=== PATIENT | female | born 1960 | race African-American/Black ===

== ENCOUNTER 2017-06-04 13:49 | Emergency (ER) | payer OTHER ==
[~2017-06-04] VITALS: Ht 157.5 cm; Wt 75.0 kg
[~2017-06-04 13:49] MED LIST: ASPI81TA42 PO; CLOP75 PO; GABA-531 PO; IBUP-1547 PO; LISI-622 PO; METF500T4 PO; METH5TAB7 PO; METO-323 PO; RANI150C PO; SIMV20TA6 PO
[2017-06-04 14:02] VITALS: BP 105/74
[2017-06-04] MEDS ORDERED: HYDR25TA PO (14:02)
[2017-06-04 14:06] LABS: GLUCOSE,POINT OF CARE 157 MG/DL (70-110)
[2017-06-04] MEDS ORDERED: EMPA25TA PO (14:07)
[2017-06-04] MEDS ORDERED: GLIP5TAB11 PO (14:07)
[2017-06-04] MEDS ORDERED: EXEN10PE3 SQ (14:07)
[2017-06-04] MEDS ORDERED: PANT40TA25 PO (14:07)
== END 2017-06-04 16:26 | disposition home or self-care (01) ==
LOC: EMS 13:50
DX: N39.0 Urinary tract infection, site not specified (principal); R81 Glycosuria; I25.10 Atherosclerotic heart disease of native coronary artery without angina pectoris; E11.9 Type 2 diabetes mellitus without complications; K21.9 Gastro-esophageal reflux disease without esophagitis; I10 Essential (primary) hypertension
CPT/HCPCS: 82962; 99283

== ENCOUNTER 2017-11-26 11:40 | Emergency (ER) | payer OTHER ==
[~2017-11-26] VITALS: Ht 157.5 cm; Wt 72.5 kg
[~2017-11-26 11:40] MED LIST changes: +EMPA25TA PO; +EXEN10PE3 SQ; +GLIP5TAB11 PO; +HYDR25TA PO; -IBUP-1547 PO; +IBUP-2077 PO; -LISI-622 PO; -METH5TAB7 PO; -METO-323 PO; +METO-408 PO; +PANT40TA25 PO
[2017-11-26 11:53] LABS: GLUCOSE,POINT OF CARE 151 MG/DL (70-110)
[2017-11-26 12:05] VITALS: BP 101/65
== END 2017-11-26 13:05 | disposition home or self-care (01) ==
LOC: EMS 11:40
DX: Z76.0 Encounter for issue of repeat prescription (principal); E11.9 Type 2 diabetes mellitus without complications; I10 Essential (primary) hypertension; I25.10 Atherosclerotic heart disease of native coronary artery without angina pectoris; K21.9 Gastro-esophageal reflux disease without esophagitis
CPT/HCPCS: 82962; 99282

== ENCOUNTER 2018-06-29 10:50 | Emergency (ER) | payer OTHER ==
[~2018-06-29] VITALS: Ht 154.9 cm; Wt 71.8 kg
[~2018-06-29 10:50] MED LIST changes: +METF-444 PO; -METF500T4 PO
[2018-06-29 11:09] LABS: GLUCOSE,POINT OF CARE 439 MG/DL (70-110)
[2018-06-29] MEDS ORDERED: INSULIN REGULAR, HUMAN 100 UNITS/ML SQ ONE (11:45)
[2018-06-29 11:47] LABS: APPEARANCE,URINE CLEAR (CLEAR); BILIRUBIN,URINE NEGATIVE (NEGATIVE); GLUCOSE, URINE (UA) >=1000 mg/dL (NEGATIVE); KETONES,URINE NEGATIVE (NEGATIVE); LEUKOCYTE ESTERASE ,URINE NEGATIVE (NEGATIVE); NITRATE,URINE NEGATIVE (NEGATIVE); OCCULT BLOOD,URINE NEGATIVE (NEGATIVE); PROTEIN,URINE NEGATIVE (NEGATIVE); UROBILINOGEN,URINE 0.2 mg/dL (<=1.0)
[2018-06-29 12:02] LABS: BACTERIA,URINE None Seen /HPF (None Seen); RBC,URINE 0-2 /HPF (0-2); SQUAMOUS EPITHELIAL CELL,UR Few /LPF (None Seen); WBC,URINE 0-2 /HPF (0-5)
[2018-06-29 12:24] LABS: GLUCOSE,POINT OF CARE 374 MG/DL (70-110)
[2018-06-29 12:28] VITALS: BP 110/77
== END 2018-06-29 12:35 | disposition home or self-care (01) ==
LOC: EMS 10:51
DX: R30.0 Dysuria (principal); E74.8 Other specified disorders of carbohydrate metabolism; I10 Essential (primary) hypertension; I25.10 Atherosclerotic heart disease of native coronary artery without angina pectoris; K21.9 Gastro-esophageal reflux disease without esophagitis; Z79.82 Long term (current) use of aspirin; Z79.84 Long term (current) use of oral hypoglycemic drugs
CPT/HCPCS: 81001; 82962; 96372; 99283; J1815

== ENCOUNTER 2019-02-24 10:43 | Emergency (ER) | payer OTHER ==
[~2019-02-24] VITALS: Ht 157.5 cm; Wt 73.6 kg
[~2019-02-24 10:43] MED LIST changes: +ASPI81TA40 PO; -ASPI81TA42 PO; -CLOP75 PO; +CLOP75TA3 PO; -EXEN10PE3 SQ; -GLIP5TAB11 PO; -HYDR25TA PO; -PANT40TA25 PO
[2019-02-24 10:54] LABS: GLUCOSE,POINT OF CARE 151 MG/DL (70-110)
[2019-02-24] MEDS ORDERED: DEXAMETHASONE SOD PHOS 4 MG/ML 5 ML VIAL IM ONE (11:45)
[2019-02-24] MEDS ORDERED: KETOROLAC TROMETHAMINE 30 MG/ML VIAL IM ONE (11:45)
[2019-02-24 12:03] LABS: BASOPHILS % (AUTO) 0.9 % (0.0-2.0); EOSINOPHILS % (AUTO) 2.1 % (1.0-6.0); HEMATOCRIT 37.8 % (36-46); HEMOGLOBIN 11.8 g/dL (12.0-16.0); LYMPHOCYTES # (AUTO) 2.4 K/uL (1.0-4.8); LYMPHOCYTES % (AUTO) 38.9 % (22.0-44.0); MEAN CORPUSCULAR HEMOGLOBIN 22.9 pg (26.0-34.0); MEAN CORPUSCULAR HGB CONC 31.2 G/dL (31.0-37.0); MEAN CORPUSCULAR VOLUME 73 fL (80-100); MONOCYTES # (AUTO) 0.5 K/uL (0.1-1.0); MONOCYTES % (AUTO) 7.8 % (2.0-9.0); NEUTROPHILS # (AUTO) 3.2 K/uL (1.8-7.7); NEUTROPHILS % (AUTO) 50.3 % (40.0-70.0); PLATELET COUNT (AUTO) 239 K/uL (150-450); RED BLOOD CELL COUNT(AUTO) 5.15 MIL/uL (4.00-5.20); RED CELL DISTRIBUTION WIDTH 16.6 % (11.5-14.5)
[2019-02-24 12:25] LABS: URIC ACID 6.2 mg/dL (2.6-7.2)
[2019-02-24 12:38] LABS: C-REACTIVE PROTEIN QUANT 0.31 mg/dL (0.00-0.30)
[2019-02-24 13:39] VITALS: BP 126/69
== END 2019-02-24 13:47 | disposition home or self-care (01) ==
LOC: EMS 10:43
DX: M17.12 Unilateral primary osteoarthritis, left knee (principal); M79.89 Other specified soft tissue disorders; I25.10 Atherosclerotic heart disease of native coronary artery without angina pectoris; E11.9 Type 2 diabetes mellitus without complications; K21.9 Gastro-esophageal reflux disease without esophagitis; I10 Essential (primary) hypertension; Z79.82 Long term (current) use of aspirin; Z79.84 Long term (current) use of oral hypoglycemic drugs
CPT/HCPCS: 36415; 73562 ×2; 82962; 84550; 85025; 85379; 86140; 96372; 99284; J1100; J1885

== ENCOUNTER 2020-08-09 19:22 | Emergency (ER) | payer OTHER ==
[~2020-08-09] VITALS: Ht 157.5 cm; Wt 81.8 kg
[~2020-08-09 19:22] MED LIST changes: +CLOP-31 PO; -CLOP75TA3 PO; +SIMV-43 PO; -SIMV20TA6 PO
[2020-08-09 21:42] LABS: APPEARANCE,URINE CLEAR (CLEAR); BILIRUBIN,URINE NEGATIVE (NEGATIVE); GLUCOSE, URINE (UA) >=1000 mg/dL (NEGATIVE); KETONES,URINE NEGATIVE (NEGATIVE); LEUKOCYTE ESTERASE ,URINE NEGATIVE (NEGATIVE); NITRATE,URINE NEGATIVE (NEGATIVE); OCCULT BLOOD,URINE NEGATIVE (NEGATIVE); PROTEIN,URINE NEGATIVE (NEGATIVE); UROBILINOGEN,URINE 0.2 mg/dL (<=1.0)
[2020-08-09 21:53] LABS: BACTERIA,URINE None Seen /HPF (None Seen); RBC,URINE None Seen /HPF (0-2); SQUAMOUS EPITHELIAL CELL,UR Few /LPF (None Seen); WBC,URINE 0-2 /HPF (0-5)
[2020-08-09 23:45] VITALS: BP 127/68
== END 2020-08-10 02:33 | disposition home or self-care (01) ==
LOC: EMS 19:31
DX: E11.9 Type 2 diabetes mellitus without complications (principal); R30.0 Dysuria; I25.10 Atherosclerotic heart disease of native coronary artery without angina pectoris; K21.9 Gastro-esophageal reflux disease without esophagitis; I10 Essential (primary) hypertension; Z79.82 Long term (current) use of aspirin; Z79.84 Long term (current) use of oral hypoglycemic drugs

== ENCOUNTER 2024-02-28 14:03 | Emergency (ER) | payer OTHER ==
[~2024-02-28] VITALS: Ht 165.1 cm; Wt 65.9 kg
[~2024-02-28 14:03] MED LIST changes: -CLOP-31 PO; +CLOP75TA60 PO; -EMPA25TA PO; +EMPA25TA3 PO; -IBUP-2077 PO
[2024-02-28 14:15] VITALS: TEMP 98
[2024-02-28 16:00] VITALS: BP 136/85; PULSE 78; RESP 18
[2024-02-28] MEDS ORDERED: CLOT15CR29 TP (16:16)
[2024-02-28] MEDS ORDERED: HYDR30OI13 TP (16:16)
== END 2024-02-28 16:24 | disposition home or self-care (01) ==
LOC: EMS 14:03
DX: R21 Rash and other nonspecific skin eruption (principal); E11.9 Type 2 diabetes mellitus without complications; I25.10 Atherosclerotic heart disease of native coronary artery without angina pectoris; I10 Essential (primary) hypertension; Z98.62 Peripheral vascular angioplasty status; Z98.890 Other specified postprocedural states
CPT/HCPCS: 99283; Z7502

== ENCOUNTER 2024-07-13 19:56 | Emergency (ER) | payer OTHER ==
[~2024-07-13] VITALS: Ht 157.5 cm; Wt 75.0 kg
[~2024-07-13 19:56] MED LIST changes: +CLOT15CR29 TP; +HYDR30OI13 TP
[2024-07-13 20:55] LABS: BASOPHILS % (AUTO) 0.8 % (0.0-2.0); EOSINOPHILS % (AUTO) 2.9 % (1.0-6.0); HEMATOCRIT 43.3 % (36-46); HEMOGLOBIN 13.8 g/dL (12.0-16.0); LYMPHOCYTES # (AUTO) 2.7 K/uL (1.0-4.8); LYMPHOCYTES % (AUTO) 43.2 % (22.0-44.0); MEAN CORPUSCULAR HGB CONC 31.8 G/dL (31.0-37.0); MEAN CORPUSCULAR VOLUME 82 fL (80-100); MONOCYTES # (AUTO) 0.5 K/uL (0.1-1.0); MONOCYTES % (AUTO) 7.5 % (2.0-9.0); NEUTROPHILS # (AUTO) 2.9 K/uL (1.8-7.7); NEUTROPHILS % (AUTO) 45.6 % (40.0-70.0); PLATELET COUNT (AUTO) 234 K/uL (150-450); RED BLOOD CELL COUNT(AUTO) 5.29 MIL/uL (4.00-5.20); RED CELL DISTRIBUTION WIDTH 14.4 % (11.5-14.5); WHITE BLOOD COUNT (AUTO) 6.3 K/uL (4.5-11.0)
[2024-07-13 21:03] LABS: CALCIUM, TOTAL 8.9 mg/dL (8.8-10.5); CREATININE 1.7 mg/dL (0.60-1.30); POTASSIUM 4.7 mmol/L (3.5-5.1)
[2024-07-13 21:08] LABS: BILIRUBIN,TOTAL 0.3 mg/dL (0.1-1.0)
[2024-07-13 22:10] LABS: APPEARANCE,URINE HAZY (CLEAR); BILIRUBIN,URINE NEGATIVE (NEGATIVE); COLOR,URINE YELLOW (YELLOW); GLUCOSE, URINE (UA) >=1000 mg/dL (NEGATIVE); KETONES,URINE NEGATIVE (NEGATIVE); LEUKOCYTE ESTERASE ,URINE LARGE (NEGATIVE); NITRATE,URINE NEGATIVE (NEGATIVE); OCCULT BLOOD,URINE TRACE (NEGATIVE); PH,URINE 5.5 (5.0-8.0); PROTEIN,URINE 30-70 mg/dL (NEGATIVE); UROBILINOGEN,URINE <=1.0 mg/dL (<=1.0)
[2024-07-13 22:22] LABS: BACTERIA,URINE Moderate /HPF (None Seen); RBC,URINE 0-2 /HPF (0-2); SQUAMOUS EPITHELIAL CELL,UR Few /LPF (None Seen); WBC,URINE 26-50 /HPF (0-5)
[2024-07-13 23:07] VITALS: BP 116/68; PULSE 77; RESP 17; TEMP 98.3; O2SAT 98
[2024-07-13] MEDS ORDERED: CEPH-558 PO (23:27)
[2024-07-13] MEDS ORDERED: PHEN-674 PO (23:27)
[2024-07-13] MEDS: PHENAZOPYRIDINE HCL 100 MG TABLET PO ONE (23:46)
[2024-07-13] MEDS: CEPHALEXIN MONOHYDRATE 500 MG CAPSULE PO ONE (23:46)
== END 2024-07-14 00:08 | disposition home or self-care (01) ==
LOC: EMS 19:56
DX: N39.0 Urinary tract infection, site not specified (principal); N28.9 Disorder of kidney and ureter, unspecified; E11.9 Type 2 diabetes mellitus without complications; I10 Essential (primary) hypertension; K21.9 Gastro-esophageal reflux disease without esophagitis; Z95.1 Presence of aortocoronary bypass graft; Z79.02 Long term (current) use of antithrombotics/antiplatelets; Z79.84 Long term (current) use of oral hypoglycemic drugs; Z79.82 Long term (current) use of aspirin; Z87.440 Personal history of urinary (tract) infections; Z79.899 Other long term (current) drug therapy
CPT/HCPCS: 80053; 81001; 85025; 87086; 87186; 99283